=== PATIENT | male | born 1970 | race Caucasian/White ===

== ENCOUNTER 2017-02-07 09:19 | Emergency (ER) | payer OTHER ==
--- NOTE | ~2017-02-07 | CR21 ---
[facility] A Service of [facility] RADIOLOGY TEXT RESULTS PATIENT: DANTE GARVEY LOCATION: [facility] : 74 UNIT #: [id number] AGE: [address]: Angella Becker APRN SEX: M ORDER DR: [id number] [id number] [facility]. [place], [place] [address] [id number] MR#: [id number] Acc #: [id number] NAME: DANTE GARVEY : 1970 SEX: M STUDY DATE/TIME: 02/07/2017 UNIT: CFTX ROOM: STUDY DESCRIPTION: CR Ankle Min 3 Views Rt Attending Physician: Angella Becker A.P.R.N. Ordering Physician: Ed Doctor [id number] [facility] Primary Care Physician: No Primary Care Physician MEDICAL IMAGING REPORT This report is preliminary unless electronic signature is present EXAM Right ankle, 3 views 02/07/2017, 10:20 hours HISTORY A 46-year-old man complaining of anterior ankle pain for 1 month. No known injury. COMPARISON None. FINDINGS AP, lateral and oblique views demonstrate no fracture or dislocation. There is an accessory ossicle posterior to the talus. There is a small plantar calcaneal spur. IMPRESSION 1. No ankle fracture or dislocation. 2. Accessory ossicle noted posterior to the talus. 3. A small plantar calcaneal spur. Dictated by... Nicole Yates M.D. THIS IS AN ELECTRONICALLY VERIFIED REPORT Nicole Yates M.D. at 02/08/2017 9:30 AM ALESSANDRO/alexsander TD: 02/07/2017 14:39 JOB #: [id number] MEDICAL IMAGING REPORT [facility] A Service [facility] RADIOLOGY TEXT RESULTS PATIENT: DANTE GARVEY LOCATION: [facility] : 74 UNIT #: [id number] AGE: [address]: Angella Becker APRN SEX: M ORDER DR: Page 1 of 1 COPY
[2017-02-07 10:10] LABS: URINE SOURCE CLEAN CATCH
[2017-02-07 10:15] LABS: URINE APPEARANCE CLEAR; URINE BILIRUBIN NEG (NEG); URINE BLOOD NEG (NEG); URINE COLOR YELLOW; URINE GLUCOSE NEG (NEG); URINE KETONE NEG (NEG); URINE LEUKOCYTE ESTERASE 1+ (NEG); URINE NITRATE NEG (NEG); URINE PROTEIN NEG (NEG); URINE SPECIFIC GRAVITY 1.017 (1.003-1.035)
[2017-02-07 10:15] LABS: BASOPHIL# 0.1 X10e3 (0-0.3); BASOPHIL% 0.8 % (0-2.5); EOSINOPHIL# 0.1 X10e3 (0-0.7); EOSINOPHIL% 0.8 % (0.0-7.0); HEMATOCRIT 48.8 % (38.0-50.0); HEMOGLOBIN 16.1 gm/dL (13.0-16.0); LYMPHOCYTE# 1.5 X10e3 (1.0-3.5); LYMPHOCYTE% 12.6 % (17.0-45.0); MEAN CELL VOLUME 85.2 FL (83-96); MEAN CORPUSCULAR HEMOGLOBIN 28.1 PG (28-34); MEAN CORPUSCULAR HGB CONC 32.9 g/dL (30-36); MEAN PLATELET VOLUME 8.7 FL (6.5-11.5); MONOCYTE# 0.9 X10e3 (0-1.0); MONOCYTE% 7.4 % (3.0-12.0); NEUTROPHIL# 9.3 X10e3 (1.5-7.1); NEUTROPHIL% 78.4 % (40-75); PLATELET COUNT 285 X10e3 (140-420); RED BLOOD COUNT 5.73 X10e (3.90-5.60); RED CELL DISTRIBUTION WIDTH 12.8 % (11.0-15.5); WHITE BLOOD COUNT 11.8 X10e3 (4.0-10.5)
[2017-02-07 10:17] LABS: U HYALINE CASTS AUWI 0-2 /[LPF]; URBCS1 AUWI 0-2 /[HPF] (0-2); URINE BACTERIA AUWI NEG (NEGATIVE); URINE SQUAMOUS EPITHELIAL CELL NONE SEEN /[HPF]
[2017-02-07 10:20] LABS: DIFF IND NO
[2017-02-07 10:28] LABS: CULTURE INDICATED? NO
[2017-02-07 10:44] LABS: ALBUMIN SERUM 4.1 g/dL (3.5-5.0); CALCIUM SERUM 11.5 mg/dL (8.4-10.2); CREATININE SERUM 1.2 mg/dL (0.6-1.4); GLOM FILT RATE Estimated 73.1 mL/min (>60); POTASSIUM 3.9 mmol/L (3.5-5.1); PROTEIN TOTAL SERUM 7.8 g/dL (6.0-8.3)
== END 2017-02-07 11:23 | disposition home or self-care (01) ==
LOC: CED 09:19 → CFTX 09:19
PROVIDERS: Nurse Practitioner
DX: M25.571 Pain in right ankle and joints of right foot (principal); M25.471 Effusion, right ankle; R03.0 Elevated blood-pressure reading, without diagnosis of hypertension; Z88.0 Allergy status to penicillin; Z88.5 Allergy status to narcotic agent
CPT/HCPCS: 36415; 73610; 80053; 81003; 82947; 85025; 99283